=== PATIENT | female | born 1935 | race Caucasian/White ===

== ENCOUNTER 2025-06-22 10:54 | Emergency (ER) | payer OTHER, SELFPAY ==
[2025-06-22 10:57] VITALS: BP 124/100; PULSE 80; RESP 16; TEMP 36.6; O2SAT 96
[2025-06-22 11:02] VITALS: BP 125/65; PULSE 60; RESP 15; O2SAT 95
--- NOTE | 2025-06-22 11:05 | CT_ITS ---
PROCEDURE: CTA ABD W/RUNOFF W/WO CONTRAST 06/22/2025 REASON FOR EXAM: RIGHT LEG PAIN, WEAKNESS, DISCOLORATION TECHNIQUE: Procedure Code: [id number] Modality: CT Procedure: CTA ABD W/RUNOFF W/WO CONTRAST One or more dose reduction techniques were used (e.g., Automated exposure control, adjustment of the mA and/or kV according to patient size, use of iterative reconstruction technique). Multiplanar Sagittal and Coronal images were obtained. 3D and or MIPS post processing was performed CONTRAST: Isovue 370 VOLUME: 95 mL RADIATION DOSE SUMMARY: CTDlvol: 9.5 mGy DLP: 1359.78 mGycm COMPARISON: None FINDINGS: Aorta: Mild mixed calcified and soft plaque identified. No abdominal aortic aneurysm. Iliac Arteries: Scattered atherosclerotic plaque. No aneurysm or significant stenosis. Celiac: Normal. SMA: Normal. KARLA : Normal. Right Renal: Mild mixed calcified and soft plaque identified. Left Renal: Normal. Lower Extremity Runoff (Bilateral): Common Femoral Arteries: Intraluminal filling defects seen in the right common femoral artery suggestive of clot. Superficial Femoral Arteries: Intraluminal filling defect within the right superficial femoral artery suggestive of clot. Profunda Femoris Arteries: Scattered intraluminal clot. Popliteal Arteries: Intraluminal filling defect in the right popliteal artery. Poor runoff in both lower extremities. CT/CTA Abd w/Runoff W/WO Contrast IMPRESSION: Findings suggestive of clot involving the right common femoral artery as well a s the right superficial femoral artery and branches of the per fundal portion. Intraluminal filling defect in the poplite al artery as well as the vessels of the runoff in the right lower leg. Portal opacification of the distal left lower leg runoff. Red Alert: Lower extremity clot The critical findings in the findings and impression above were relayed directl y by me by telephone to Cynthia Lockett on 06/22/2025 at 12:26 pm with readback verification. Reading Location: [place] [address]
--- NOTE | 2025-06-22 11:05 | EKG12_ITS ---
Test Reason : LOWER EXTREMITY Blood Pressure : */* mmHG Vent. Rate : 81 BPM Atrial Rate : 326 BPM P-R Int : * ms QRS Dur : 90 ms QT Int : 374 ms P-R-T Axes : * 196 140 degrees QTcB Int : 434 ms Atrial flutter with variable A-V block with premature ventricular or aberrantly conducted complexes Right superior axis deviation Low voltage QRS Cannot rule out Inferior infarct , age undetermined Abnormal ECG Confirmed by LILIANA RICE, SYLVIA ([id number]), photography editor NILSON BEVERLY ([id number]) on 06/24/2025 10:31:31 AM Referred By: NICA Confirmed By: SYLVIA FORD MD
--- NOTE | 2025-06-22 11:07 | ED.VIS.LOWEX ---
HPI History of Present Illness Chief Complaint: Lower Extremity Injury Detail of Chief Complaint: Right leg pain Informant: patient Narrative Narrative: Patient presents with sudden onset of right leg pain that started this morning around 9:30 AM. No prior episodes. There was no fall or injury. Patient with history of diabetes and hypertension. She is not anticoagulated. No recent travel or surgery. [facility] Medical History (Updated 06/22/25 @ 12:[address] Cynthia Lockett, DO) Diabetes HTN (hypertension) Home Medications ?Medication ?Instructions ?Recorded ?Last Taken ?Type amlodipine 10 mg tablet 10 mg PO DAILY 06/22/25 Unknown History atorvastatin 10 mg tablet (Lipitor) 10 mg PO DAILY 06/22/25 Unknown History cholecalciferol (vitamin D3) 1,250 50,000 unit PO QWEEK 06/22/25 Unknown History mcg (50,000 unit) capsule lisinopril 20 1 tab PO DAILY 06/22/25 Unknown History mg-hydrochlorothiazide 25 mg tablet Allergy/AdvReac Type Severity Reaction Status Date / Time No Known Allergies Allergy Verified 06/22/25 11:05 Family History no significant family his Surgical History (Updated 06/22/25 @ 11:04 by Fara Hardy) H/O tubal ligation Social History (Updated 06/22/25 @ 11:04 by Fara Hardy) household members: family housing: house Smoking Status: Never smoker ROS ROS ED Review of Systems ROS Unobtainable: other Constitutional Constitutional ED: Reports lethargy; Denies chills, fever(s), sweats or weight loss Eyes Eyes: Denies blurry vision, change in vision or diplopia ENT ENT ED: Denies rhinorrhea or sore throat Cardiovascular Cardiovascular: Denies chest pain, orthopnea or racing heartbeat Respiratory/Chest Respiratory/Chest: Denies cough, dyspnea, dyspnea on exertion, orthopnea or sputum Gastrointestinal Gastrointestinal: Denies abdominal pain, diarrhea, nausea or vomiting Genitourinary Genitourinary ED: Denies dysuria, hematuria or urinary frequency Musculoskeletal Musculoskeletal: Reports other Details: Right leg pain ; Denies arthralgias, back pain, myalgias or neck pain Integumentary Denies abscess, Abrasions or rash Neurologic Neurologic: Denies headache(s) or weakness Psychiatric Psychiatric: Denies anxiety, depression or suicidal thoughts Endocrine Endocrinology: Denies polydipsia, polyphagia or polyuria Hematologic/Lymphatic Hematologic/Lymphatic: Denies easy bleeding, easy bruising or lymphadenopathy Allergic/Immunologic Allergic/Immunologic ED: Denies mouth swelling, tongue swelling or urticaria EXAM Physical Exam Const Vital Signs: 06/22/25 10:57 06/22/25 11:02 06/22/25 12:31 Temperature 97.9 F Temperature Source Oral Pulse Rate 80 60 Respiratory Rate 16 15 Blood Pressure 124/100 H 125/65 H Blood Pressure Mean 108 85 Pulse Ox 96 95 87 Oxygen Delivery Method Room Air Room Air Room Air Positive well nourished and well developed General Appearance ED: well developed and NAD HEENT Reports TM's clear and moist mucous membranes normocephalic and atraumatic; Negative for trauma or tenderness Tympanic Membrane ED: Yes TM's clear Eyes PERRL and EOMs intact bilaterally General Eye ED: Negative for pale conjunctiva or scleral icterus Neck no lymphadenopathy, supple and no JVD General: Negative for tenderness Chest Wall inspection of chest normal and palpation of chest normal Chest: Negative for tenderness Resp normal respiratory effort and clear to auscultation bilaterally Effort and Inspection: Negative for respiratory distress or pain with movement Auscultation: Negative for rhonchi, wheezes or diminished lung sounds Cardio regular rate, regular rhythm, S1 normal heart sound, S2 normal heart sound and no murmurs Peripheral Pulses: pulses 2+ throughout GI normal to inspection, nondistended, normoactive bowel sounds, soft to palpation, non-tender, non-distended and no masses Back/Spine no CVA tenderness and no thoracic nor lumbar tenderness Extremity normal to inspection Extremity Narrative: Right leg-patient has tenderness palpation over the right lateral thigh. No obvious deformity. She does have a mottling to the skin of the thigh and there was pallor to the right lower extremity. Decreased ability to palpate dorsal pedal posterior tibial and popliteal pulses. Decree sensation distally with diminished cap refill of 6 seconds. General Extremety ED: Negative for edema General Extremity: Negative for edema Neuro oriented x3, CN's II-XII intact bilaterally, no sensory deficits noted and gait normal Sensorium / Orientation: awake, alert, oriented to person, oriented to place and oriented to time Motor Exam: strength 5/5 throughout and strength abnormal Psych mental status grossly normal Skin no rashes or lesions noted and no wounds MDM MDM MDM Narrative Medical decision making narrative: Patient presents with sudden onset right leg pain with mottling and decreased pulses. Concern for vascular occlusion. She was medicated with morphine and Zofran. IV line was to be established and patient will have a CTA of the abdomen with runoffs to evaluate further. Basic labs will be obtained. Patient has CBC with differential performed showed a white count of 9.9 with hemoglobin 13.1 and platelet count of 299. Chemistries unremarkable. Patient started on a heparin drip. CTA of the abdomen pelvis with runoffs obtained showed clot in the right common femoral and superficial femoral with diminished runoffs. Discussed results with patient and family members as we do not have vascular surgery available at our facility today. They are requesting to go to [facility] in [place]. Will contact them for transfer. Spoke with Dr. Nguyen vascular surgeon on-call who accepted transfer of patient to their facility but asked that patient go to the emergency department while he made arrangements with the operating room potentially. I was asked to push the CTA images so that they can be visualized. Patient will be transported in guarded condition. Lab Data Attestation: I reviewed the patient's lab results. Labs: Laboratory Results - last 24 hr 06/22/25 06/22/25 11:25 11:47 WBC 9.9 RBC 4.11 L Hgb 13.1 Hct 37.7 MCV 91.7 MCH 31.9 MCHC 34.7 RDW Std Deviation 44.1 H RDW Coeff of Mel 13.2 Plt Count 299 MPV 9.0 Immature Gran % (Auto) 0.500 Neut % (Auto) 66.8 Lymph % (Auto) 24.2 Gaines % (Auto) 8.0 Eos % (Auto) 0.1 Baso % (Auto) 0.4 Absolute Neuts (auto) 6.6 Absolute Lymphs (auto) 2.40 Nucleated RBC % 0 PT Cancelled 14.9 INR Cancelled 1.2 APTT 23.5 L Sodium 135 Potassium 2.8 L Chloride 97 L Carbon Dioxide 20.6 L Anion Gap 17 H BUN 17 Creatinine 0.66 L Estim Creat Clear Calc 49.17 L Est GFR (MDRD) Non-Af 84 BUN/Creatinine Ratio 25.5 H Glucose 195 H Lactic Acid 1.6 Calcium 9.4 Radiography Diagnostic Testing: Clinical Impression(s) from Imaging Studies Abdomen/Pelvis CTA 06/22/25 11:05 IMPRESSION: Findings suggestive of clot involving the right common femoral artery as well as the right superficial femoral artery and branches of the per fundal portion. Intraluminal filling defect in the popliteal artery as well as the vessels of the runoff in the right lower leg. Portal opacification of the distal left lower leg runoff. Red Alert: Lower extremity clot The critical findings in the findings and impression above were relayed directly by me by telephone to Cynthia Lockett on 06/22/2025 at 12:26 pm with readback verification. Reading Location: [facility] EKG Initial EKG: Attestation: I personally reviewed and interpreted this EKG as follows: Comments: Atrial flutter with PVCs. Ventricular rate of 81 bpm. Discharge Plan Triage Chief Complaint: Lower Extremity Injury ED Provider: Cynthia Lockett Dx/Rx/DC Orders Clinical Impression: Ischemia of right lower extremity, Atrial flutter Prescriptions: No Action cholecalciferol (vitamin D3) 1,250 mcg (50,000 unit) capsule 50,000 unit PO QWEEK atorvastatin [Lipitor] 10 mg tablet 10 mg PO DAILY amlodipine 10 mg tablet 10 mg PO DAILY lisinopril-hydrochlorothiazide 20-25 mg tablet 1 tab PO DAILY Primary Care Provider: SARAH MENDOZA Referrals: ASRAH MENDOZA NP-C [Primary Care Provider, Family Practice] Print Language: Portuguese Disposition Disposition: DC/Tx to Another Type of HCF
[2025-06-22] MEDS: 0.9% Normal Saline (1000mL) 1,000 ML 150 ML IV (11:25)
[2025-06-22 11:35] LABS: Hematocrit 37.7 % (37-47); Hemoglobin 13.1 g/dL (12.0-15.0); Immature Granulocytes Count 0.050 X10^3/uL (0.0-0.0); Mean Corp Hgb Conc 34.7 g/dL (32-36); Mean Corpuscular Volume 91.7 fL (81-99); Mean Platelet Vol. 9.0 fl (6.2-12.0); NRBC Flagged by Analyzer 0 % (0-5); Platelet Count 299 K/mm3 (150-450); RBC Distribution Width CV 13.2 % (11.6-14.6); RBC Distribution Width SD 44.1 fl (35.1-43.9); Red Blood Count 4.11 M/mm3 (4.2-5.4); White Blood Count 9.9 K/mm3 (4.4-11.0)
[2025-06-22 11:42] VITALS: BMI 31.8
[2025-06-22 11:58] LABS: Anion Gap 17 (5-15); BUN 17 mg/dL (4-19); BUN/Creat Ratio 25.5 RATIO (10-20); Calcium,Total 9.4 mg/dL (7.6-11.0); Carbon Dioxide 20.6 mmol/L (21.0-32.0); Chloride 97 mmol/L (98-108); Estimated Creatinine Clearance 49.17 ml/min (50-250); Glucose 195 mg/dL (70-99); Potassium 2.8 mmol/L (3.3-5.1)
[2025-06-22 12:04] LABS: Prothrombin Time (Protime)PT. 14.9 SECONDS (11.7-14.9)
[2025-06-22 12:05] LABS: Partial Thromboplast Time 23.5 Seconds (24.1-36.2)
[2025-06-22] MEDS: Heparin Injection (Vial) 5,000 UNIT/ML VIAL 5500 UNIT IV (12:21)
[2025-06-22 12:31] VITALS: O2SAT 87
[2025-06-22] MEDS: Potassium Chloride 10mEq/100mL 10 MEQ/100 ML IV.SOLN. 100 MEQ IV BOLUS ×2 (12:37→13:48)
[2025-06-22] MEDS: HEPARIN/D5w 25,000 UNITS 25,000 UNITS/250 ML IV.SOLN. 12.2 UNITS CONT INF (12:44)
[2025-06-22 13:30] VITALS: BP 143/70; PULSE 85; RESP 19; TEMP 36.6; O2SAT 99
[2025-06-22 14:00] VITALS: BP 127/84; PULSE 84; RESP 20; O2SAT 97
== END 2025-06-22 14:52 | disposition other institution (70) ==
PROVIDERS: Emergency Provider Emergency Medicine; PCP Nurse Practitioner Family; Visit Provider Emergency Medicine
DX: I99.8 Other disorder of circulatory system (principal); I48.92 Unspecified atrial flutter; E11.9 Type 2 diabetes mellitus without complications; M79.604 Pain in right leg; I10 Essential (primary) hypertension; I49.3 Ventricular premature depolarization; Z79.899 Other long term (current) drug therapy
CPT/HCPCS: 75635; 80048; 83605; 85025; 85610; 85730; 93005; 96361; 96365; 96366; 96368; 96375; 96376; 99285; Q9967; A4216; J2405